=== PATIENT | male | born 1930 | race Caucasian/White ===

== ENCOUNTER 2018-07-12 16:45 | Emergency (ER) | payer MEDICARE, OTHER ==
--- NOTE | 2018-07-12 17:14 | Emergency Department Record ---
History of Present Illness - General Chief Complaint: Fall Injury Stated Complaint: FALL Time Seen by Provider: 07/12/18 17:01 Source: Patient Mode of Arrival: Wheelchair Limitations: No limitations - History of Present Illness Initial Comments: The patient is here due to tripping and falling down 1-2 steps 8 hours ago. He hit his L arm and ribs and has had pain in those areas since. The fall was witnessed by his and she is clear that he did not hit his head or have any LOC. The patient was well for some time but now for the last few hours is having trouble walking due to pain. His main issue seems to be L rib pain. MD Complaint: Fall Onset/Timin -: Hour(s) Fall From: Down stairs (#) When Fall Occurred: Other Fall Witnessed: Yes, by family Place Fall Occurred: Home Loss of Consciousness: None Prolonged Down Time?: No Symptoms Prior to Fall: None Severity: Moderate Severity scale (1-10): 8 Quality: Aching Associated Symptoms: Denies - [place] Coma Scale Eye Response: (4) Open spontaneously Verbal Response: (3) Inappropriate words - Related Data Previous Rx's Medication Instructions Recorded Hydrocodone/Acetaminophen [Stuart 1 each PO QID #12 tablet 07/12/18 5-325 Tablet] Allergies Allergy/AdvReac Type Severity Reaction Status Date / Time alendronate sodium Allergy Unknown PT UNSURE Unverified 07/12/18 17:01 [From FOSAMAX] OF REACTION Antihistamines - Alkylamine Allergy Unknown PT UNSURE Unverified 07/12/18 17:01 [ANTIHISTAMINES - ALKYLAMINE] OF REACTION candesartan cilexetil Allergy Unknown PT UNSURE Unverified 07/12/18 17:01 [From ATACAND] OF REACTION levofloxacin [From LEVAQUIN] Allergy Unknown PT UNSURE Unverified 07/12/18 17:01 OF REACTION metoprolol [METOPROLOL] Allergy Unknown PT UNSURE Unverified 07/12/18 17:01 OF REACTION Qxsrfcr-Ndk-Faw Reductase Allergy Unknown PT UNSURE Unverified 07/12/18 17:01 Inhibitor OF REACTION [OHEPPOH-CTU-YTN REDUCTASE INHIBITOR] warfarin sodium Allergy Unknown PT UNSURE Unverified 07/12/18 17:01 [From COUMADIN] OF REACTION Travel Screening - Travel/Exposure Within Last 30 Days Have you traveled within the last 30 days?: No Review of Systems Constitutional: Denies: Chills, Fever Eyes: Denies: Eye discharge ENT: Denies: Congestion Respiratory: Denies: Cough, Dyspnea Past Medical History - SOCIAL HISTORY Smoking Status: Never smoker Alcohol Use: None Drug Use: None - RESPIRATORY Hx Respiratory Disorders: No - CARDIOVASCULAR Hx Cardio Disorders: Yes Hx Irregular Heartbeat: Yes (afib) - NEURO Hx Neuro Disorders: Yes Comment:: dementia - GI Hx GI Disorders: No - Hx Genitourinary Disorders: No - ENDOCRINE Hx Endocrine Disorders: Yes Hx Thyroid Disease: Yes - MUSCULOSKELETAL Hx Musculoskeletal Disorders: No - PSYCH Hx Psych Problems: No - HEMATOLOGY/ONCOLOGY Hx Hematology/Oncology Disorders: Yes Hx Cancer: Yes (prostate) Family Medical History Any Significant Family History?: No Physical Exam - General General Appearance: Alert, Cooperative, No acute distress - Head Head exam: Atraumatic, Normocephalic - Eye Eye exam: Normal appearance, PERRL - Neck Neck exam: Normal inspection, Full ROM. negative: Tenderness - Respiratory Respiratory exam: Normal lung sounds bilaterally. negative: Respiratory distress - Cardiovascular Cardiovascular Exam: Irregular rhythm - GI/Abdominal GI/Abdominal exam: Soft, Tenderness. negative: Rebound, Rigid - Extremities Extremities exam: Full ROM. negative: Normal inspection (There is a L forearm abrasion. There is no bony tenderness.) - Back Back exam: Reports: Normal inspection - Neurological Neurological exam: Abnormal gait (chronic.), Alert. negative: Altered, Motor sensory deficit, Normal gait, Oriented X3 (The patient has very extensive dementia.) Course Vital Signs 07/12/18 16:57 Temperature 97.8 F Pulse Rate 81 Respiratory 16 Rate Blood Pressure 182/89 Pulse Ox 98 - Reevaluation(s) Reevaluation #1: The patient is resting comfortably with no complaints presently. 07/12/18 18:15 Reevaluation #2: I did offer to admit the patient to the hospital for pain control and a PT/OT eval but the patient's and daughter would like to take him home. They understand that the patient could be quite immobile at home and in pain and also unsteady on his feet. Even with those issues they would like to take him home. I explained to them they should return to the ER for any worsening symptoms. 07/12/18 19:13 Medical Decision Making - Data Complexity MDM Data: Labs Ordered and/or Reviewed, X-Ray Ordered and/or Reviewed - Lab Data Result diagrams: 07/12/18 17:10 07/12/18 17:10 - Radiology Data Radiology results: Report reviewed (Chest CT: Nondisplaced T7 and 9 rib fx's with very minimally displaced T8 rib fx. Abd CT: neg for acute changes.) Disposition Disposition: Discharge Clinical Impression: Rib fractures Qualifiers: Encounter type: initial encounter Rib fracture type: multiple ribs Fracture type: closed Laterality: left Qualified Code(s): S22.42XA - Multiple fractures of ribs, left side, initial encounter for closed fracture Disposition: Home, Self-Care Condition: (2) Stable Instructions: Rib Fracture (ED) Additional Instructions: Please use Tylenol OR Stuart for pain. Please see your family doctor later this week or next week. Return to the ER for any worsening symptoms. Keep the L arm abrasion clean and dressed with antibiotic ointment and a bandaid until healed. Prescriptions: Hydrocodone/Acetaminophen [Stuart 5-325 Tablet] 1 each PO QID #12 tablet Forms: Patient Portal Access Time of Disposition: 19:16 Quality - Quality Measures Quality Measures: N/A - Blood Pressure Screening View Details: Yes Does Patient Have Any of the Following: No Blood Pressure Classification: Pre-Hypertensive BP Reading Systolic Measurement: 182 Diastolic Measurement: 89 Screening for High Blood Pressure: < Pre-Hypertensive BP, F/U Documented > [ G8950] Pre-Hypertensive Follow-up Interventions: Referral to alternative/primary care provider.
[2018-07-12 17:25] LABS: BASO % 0.7 % (0-6); EOS % 1.7 % (0-6); GRAN % 60.4 % (47-80); HEMATOCRIT 48.5 % (42.0-52.0); HEMOGLOBIN 16.3 gm/dl (14.0-18.0); LYMPH % 25.1 % (16-45); MEAN CELL VOLUME 95.1 fl (81-97); MEAN CORPUSCULAR HGB CONC 33.6 g/dl (32-36); MEAN PLATELET VOLUME 9.6 fl (7.4-10.4); MONO % 12.1 % (0-9); PLATELET COUNT 286 K/uL (130-400); RED CELL DISTRIBUTION WIDTH 13.3 % (11.5-14.5); WHITE BLOOD COUNT W/O DIFF 12.1 K/uL (4.2-12.2)
[2018-07-12 17:33] LABS: CREATININE 1.4 mg/dL (0.7-1.2)
[2018-07-12 17:36] LABS: INR 1.1; PARTIAL THROMBOPLASTIN TIME 27.3 SECONDS (24.5-39.1); PROTHROMBIN TIME (PATIENT) 10.7 SECONDS (9.5-12.1)
[2018-07-12] MEDS ORDERED: HYDROCODONE/APAP 5/325MG TABLET PO ONE ×2 (18:59→19:17)
[2018-07-12] MEDS ORDERED: Diph,Pert(Acell),Tet Vac 0.5 ML SYR IM ONE (19:18)
--- NOTE | 2018-07-14 08:07 | CT SCAN REPORT ---
EXAM: CT OF THE CHEST WITHOUT CONTRAST HISTORY: LEFT RIB PAIN, PATIENT FELL DOWN STEPS WHILE WALKING DOWN THE PORCH THIS MORNING WITH LEFT SIDE RIB PAIN. TECHNIQUE: Axial CT scan of the chest was performed without IV contrast. Comparison: No prior chest CT. Comparison is made with the chest x-ray dated 06/24/13. Encounter: Initial. FINDINGS: The patient is postop sternotomy. Calcified granuloma right apical region. Heavy coronary artery calcification is present. No pericardial effusion evident. 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 There is no pneumothorax on either side. There is probably some mild atelectasis in the dependent portion of the lungs. Minor linear fibrosis or discoid atelectasis in the left upper lung anteriorly as well. There is a mildly displaced fracture posteriorly in the left eighth rib with probably undisplaced fractures posteriorly in the left seventh and ninth ribs as well. There is moderate compression of the body of T8, but this appears to have been present on a prior lateral chest x-ray of 06/21/13 as well. Mild thoracic curve to the right. There are probably a few calcified pleural plaques in the right apical region posteriorly which are nonspecific although can be seen with some prior asbestos exposure. There is also some mild alveolar infiltrate in both upper lobes. IMPRESSION: 1. MILDLY DISPLACED FRACTURE POSTERIORLY IN THE LEFT EIGHTH RIB. PROBABLE UNDISPLACED FRACTURES IN THE ADJACENT LEFT SEVENTH AND NINTH RIBS WELL. NO ASSOCIATED PNEUMOTHORAX EVIDENT. 2. POSTOP STERNOTOMY WITH EXTENSIVE CORONARY ARTERY CALCIFICATION. 3. ANOMALOUS RIGHT SUBCLAVIAN ARTERY. 4. SOME MILD GROUND GLASS ALVEOLAR INFILTRATE IN BOTH UPPER LOBES. 5. CALCIFIED GRANULOMA RIGHT APEX. 6. SOME CALCIFIED PLEURAL PLAQUES IN THE RIGHT APEX POSTERIORLY WELL. 7. CHRONIC COMPRESSION FRACTURE OF T8 ALSO SEEN ON 06/21/13. JOB NUMBER: [id number] MTDD
--- NOTE | 2018-07-14 08:41 | CT SCAN REPORT ---
EXAM: EMERGENCY CT SCAN OF THE ABDOMEN AND PELVIS WITHOUT CONTRAST HISTORY: PATIENT FELL WITH LEFT LOWER BACK PAIN. TECHNIQUE: Axial CT scan of the abdomen and pelvis was performed without oral or IV contrast at the referring physician's request. Comparison: No prior CT of the abdomen or pelvis with which to compare. Encounter: Initial. FINDINGS: Postop sternotomy is noted in the chest CT from today. Extensive coronary artery calcification again noted. Mildly displaced fracture posteriorly in the left eighth rib and undisplaced fractures in the left seventh and ninth ribs posteriorly also as noted on the chest CT from today. There is mild compression of the body of L2 along the superior end plate which was probably present on the prior lateral chest x-ray of 06/21/13 as well and is likely chronic. Diffuse osteopenia consistent with osteoporosis. There is multilevel degenerative change in the lumbar spine with multilevel degenerative disk disease and multilevel facet joint arthropathy. There is marked central stenosis at the L3-L4 level with slight anterior subluxation of L3 on L4 which appears to be on a degenerative basis related to the extensive facet joint arthropathy at this level. Less prominent central stenosis at other levels as well. Multilevel foraminal stenosis also present. No intrarenal calculi or hydronephrosis evident. Moderate bladder distention with no bladder calculi evident and no hydroureter or ureteral calculus seen on either side. Evaluation of the bowel and viscera is extremely limited without oral or IV contrast. Given this limitation, no definite hepatic, splenic, adrenal, pancreatic, or renal mass identified. Small hiatal hernia. Prominent diverticulosis left side of the colon, but no diverticulitis evident. The appendix is visualized and appear negative. No free intraperitoneal air or free intraperitoneal fluid identified. IMPRESSION: 1. LEFT SEVENTH THROUGH NINTH RIB FRACTURES REPORTED IN THE CHEST CT. 2. MILD COMPRESSION SUPERIOR END PLATE OF THE BODY OF L2 APPEARS CHRONIC. 3. ADVANCED DEGENERATIVE CHANGES MOST MARKED AT THE L3-L4 INTERSPACE WITH PROMINENT STENOSIS AT THIS LEVEL, LESS SO ELSEWHERE ALSO DESCRIBED ABOVE. 4. PROMINENT DIVERTICULOSIS LEFT SIDE OF THE COLON, BUT NO DIVERTICULITIS. EVIDENT. 5. NO FREE AIR OR FREE FLUID EVIDENT. 6. NO URINARY TRACT CALCULI OR HYDRONEPHROSIS EVIDENT. JOB NUMBER: [id number] [facility]
== END 2018-07-12 19:51 | disposition home or self-care (01) ==
LOC: ER 16:45
DX: S22.42XA Multiple fractures of ribs, left side, initial encounter for closed fracture (principal); W01.10XA Fall on same level from slipping, tripping and stumbling with subsequent striking against unspecified object, initial encounter; Y92.009 Unspecified place in unspecified non-institutional (private) residence as the place of occurrence of the external cause; I48.91 Unspecified atrial fibrillation
CPT/HCPCS: 71250; 74176; 80048; 85025; 85610; 85730; 90715; 94010; 96372; 99283; 99284

== ENCOUNTER 2019-07-11 14:04 | Inpatient (IN) | payer MEDICARE, OTHER ==
[2019-07-11 14:45] LABS: ABSOLUTE NEUTROPHIL COUNT 5.28; BASO % 0.7 % (0-6); GRAN % 57.1 % (47-80); HEMATOCRIT 45.8 % (42.0-52.0); HEMOGLOBIN 15.6 gm/dl (14.0-18.0); LYMPH % 27.7 % (16-45); MEAN CELL VOLUME 96.2 fl (81-97); MEAN CORPUSCULAR HEMOGLOBIN 32.8 pg (27-33); MEAN CORPUSCULAR HGB CONC 34.1 g/dl (32-36); MEAN PLATELET VOLUME 9.8 fl (7.4-10.4); MONO % 12.5 % (0-9); PLATELET COUNT 299 K/uL (130-400); RED BLOOD COUNT 4.76 M/uL (4.40-5.70); RED CELL DISTRIBUTION WIDTH 13.3 % (11.5-14.5); WHITE BLOOD COUNT W/O DIFF 9.2 K/uL (4.2-12.2)
[2019-07-11 15:22] LABS: ALB/GLOB RATIO 1.1 (1.1-1.8); ALBUMIN 4.1 g/dL (4.0-5.0); BILIRUBIN,TOTAL 0.6 mg/dL (0.2-1.0); CREATININE 1.3 mg/dL (0.7-1.2); TOTAL PROTEIN 7.8 g/dL (6.6-8.7)
--- NOTE | 2019-07-11 16:19 | ULTRASOUND REPORT ---
EXAMINATION: Left Lower Extremity Ultrasound, Venous Duplex Doppler EXAM DATE: 07/11/2019 4:10 PM TECHNIQUE: Color Doppler, spectral Doppler, and hines scale evaluation of the left lower extremity fro m the common femoral vein to the popliteal vein. Evaluation of the deep venous system of the lower e xtremity was performed. INDICATION: swelling PROCEDURE: Duplex scan of extremity veins including responses to compression and other maneuvers; un ilateral study FINDINGS: The deep venous system of the left leg appears normal, with normal flow and compressibilit y. No filling defects are seen. IMPRESSION: 1. Negative for DVT. Dictated by: Maco Maciel MD on 07/11/2019 4:16 PM. .
[2019-07-11] MEDS ORDERED: LIDOCAINE UROJECT 10 ML APPL MM ONE (16:34)
[2019-07-11 17:02] LABS: URINE APPEARANCE CLEAR; URINE BILIRUBIN NEGATIVE (NEGATIVE); URINE BLOOD NEGATIVE (NEGATIVE); URINE COLOR YELLOW; URINE GLUCOSE (UA) NEGATIVE (NEGATIVE); URINE KETONE NEGATIVE (NEGATIVE); URINE LEUKOCYTE ESTERASE NEGATIVE (NEGATIVE); URINE NITRITE NEGATIVE (NEGATIVE); URINE PROTEIN NEGATIVE (NEGATIVE); URINE UROBILINOGEN 0.2 E.U./dL (0.20 - 1.00)
--- NOTE | 2019-07-11 17:15 | RADIOLOGY REPORT ---
EXAMINATION: Left Ankle, Complete Minimum Three Views EXAM DATE: 07/11/2019 5:00 PM TECHNIQUE: AP, lateral, and oblique INDICATION: Unexplained swelling. COMPARISON: None ENCOUNTER: Initial FINDINGS: The bones are osteopenic. No clearly acute osseous abnormality. Moderate scattered soft tissue swelli ng. IMPRESSION: Osteopenia. No conclusive acute osseous abnormality. Dictated by: Zohaib Randall MD on 07/11/2019 5:11 PM. .
--- NOTE | 2019-07-11 17:30 | Emergency Department Record ---
History of Present Illness - General Chief complaint: Swelling of legs Stated complaint: LEG SWELLING Time Seen by Provider: 07/11/19 14:27 Source: Family, EMS Mode of Arrival: EMS Limitations: No limitations - History of Present Illness Initial comments: pt was brought in by ems for increased weakness, unable to walk, l ankle swelling. pt has dementia. MD Complaint: Extremity pain Onset/Timin -: Week(s) Location: Left, Lower Leg History of Same: Yes (but worsening) Consistency: Getting worse Improves with: Nothing Worsens with: Exertion, Weight bearing - Related Data Home Medications Medication Instructions Recorded Confirmed Last Taken Cholecalciferol (Vitamin D3) 2,000 unit PO DAILY 07/11/19 07/11/19 07/11/19 [Vitamin D3] Allergies Allergy/AdvReac Type Severity Reaction Status Date / Time alendronate sodium Allergy Unknown PT UNSURE Verified 07/11/19 14:22 [From FOSAMAX] OF REACTION Antihistamines - Alkylamine Allergy Unknown PT UNSURE Verified 07/11/19 14:22 [ANTIHISTAMINES - ALKYLAMINE] OF REACTION candesartan cilexetil Allergy Unknown PT UNSURE Verified 07/11/19 14:22 [From ATACAND] OF REACTION levofloxacin [From LEVAQUIN] Allergy Unknown PT UNSURE Verified 07/11/19 14:22 OF REACTION metoprolol [METOPROLOL] Allergy Unknown PT UNSURE Verified 07/11/19 14:22 OF REACTION Pcwyloq-Yih-Xjj Reductase Allergy Unknown PT UNSURE Verified 07/11/19 14:22 Inhibitor OF REACTION [[id number]-PTS REDUCTASE INHIBITOR] warfarin sodium Allergy Unknown PT UNSURE Verified 07/11/19 14:22 [From COUMADIN] OF REACTION Travel Screening - Travel/Exposure Within Last 30 Days Have you traveled within the last 30 days?: No - Travel/Exposure Within Last Year Have you traveled outside the [place] in the last year?: No - Additonal Travel Details Have you been exposed to anyone with a communicable illness?: No Review of Systems Reviewed: No additional complaints except as noted below Constitutional: Reports: As per HPI. Denies: Chills, Fever, Malaise, Night sweats, Weakness, Weight change Eyes: Reports: As per HPI. Denies: Eye discharge, Eye pain, Photophobia, Vision change ENT: Reports: As per HPI. Denies: Congestion, Dental pain, Ear pain, Epistaxis, Hearing loss, Throat pain Respiratory: Reports: As per HPI. Denies: Cough, Dyspnea, Hemoptysis, Stridor, Wheezes Cardiovascular: Reports: As per HPI. Denies: Arrhythmia, Chest pain, Dyspnea on exertion, Edema, Murmurs, Orthopnea, Palpitations, Paroxysmal nocturnal dyspnea, Rheumatic Fever, Syncope Endocrine: Reports: As per HPI. Denies: Fatigue, Heat or cold intolerance, Polydipsia, Polyuria Gastrointestinal: Reports: As per HPI. Denies: Abdominal pain, Constipation, Diarrhea, Hematemesis, Hematochezia, Melena, Nausea, Vomiting Genitourinary: Reports: As per HPI. Denies: Dysuria, Frequency, Hematuria, Incontinence, Retention, Testicular pain, Testicular mass, Urgency Musculoskeletal: Reports: As per HPI. Denies: Arthralgia, Back pain, Gout, Joint swelling, Myalgia, Neck pain Skin: Reports: As per HPI. Denies: Bruising, Change in color, Change in hair/nails, Lesions, Pruritus, Rash Neurological: Reports: As per HPI. Denies: Abnormal gait, Confusion, Headache, Numbness, Paresthesias, Seizure, Tingling, Tremors, Vertigo, Weakness Psychiatric: Reports: As per HPI. Denies: Anxiety, Auditory hallucinations, Depression, Homicidal thoughts, Suicidal thoughts, Visual hallucinations Hematological/Lymphatic: Reports: As per HPI. Denies: Anemia, Blood Clots, Easy bleeding, Easy bruising, Swollen glands Past Medical History - SOCIAL HISTORY Smoking Status: Never smoker Alcohol Use: None Drug Use: None - RESPIRATORY Hx Respiratory Disorders: No - CARDIOVASCULAR Hx Cardio Disorders: Yes Hx CHF: Yes Hx Heart Attack: Yes (2002) Hx Irregular Heartbeat: Yes (afib) - NEURO Hx Neuro Disorders: Yes Comment:: dementia - GI Hx GI Disorders: No - Hx Genitourinary Disorders: Yes Hx UTI: Yes Comment:: sepsis - ENDOCRINE Hx Endocrine Disorders: Yes Hx Diabetes: No Hx Thyroid Disease: Yes - MUSCULOSKELETAL Hx Musculoskeletal Disorders: No - PSYCH Hx Psych Problems: No - HEMATOLOGY/ONCOLOGY Hx Hematology/Oncology Disorders: Yes Hx Cancer: Yes (prostate) Hx Chemotherapy: No Hx Radiation Therapy: No Family Medical History Any Significant Family History?: No Physical Exam - General General Appearance: Alert, Cooperative, No acute distress - Head Head exam: Normal inspection - Eye Eye exam: Normal appearance, PERRL, EOMI Pupils: Normal accommodation - ENT ENT exam: Normal exam, Mucous membranes moist, Normal external ear exam, Normal orophraynx Ear exam: Normal external inspection. negative: External canal tenderness Nasal Exam: Normal inspection. negative: Discharge, Sinus tenderness Mouth exam: Normal external inspection, Tongue normal Teeth exam: Normal inspection. negative: Dental caries Throat exam: Normal inspection. negative: Tonsillar erythema, Tonsillar exudate - Neck Neck exam: Normal inspection, Full ROM. negative: Tenderness - Respiratory Respiratory exam: Normal lung sounds bilaterally. negative: Respiratory distress - Cardiovascular Cardiovascular Exam: Regular rate, Normal rhythm, Normal heart sounds - GI/Abdominal GI/Abdominal exam: Soft, Normal bowel sounds. negative: Tenderness - Rectal Rectal exam: Deferred - exam: Deferred - Extremities Extremities exam: Normal inspection, Full ROM, Normal capillary refill. negative: Tenderness - Back Back exam: Reports: Normal inspection, Full ROM. Denies: Muscle spasm, Rash noted, Tenderness - Neurological Neurological exam: Alert, CN II-XII intact, Other (pt has generalized weakness, unable to walk). negative: Normal gait, Oriented X3 - Psychiatric Psychiatric exam: Normal affect, Normal mood - Skin Skin exam: Dry, Intact, Normal color, Warm Course Vital Signs 07/11/19 07/11/19 14:06 17:05 Temperature 98.3 F Pulse Rate 91 H Pulse Rate [ 77 Pulse Ox Probe] Respiratory 20 16 Rate Blood Pressure 143/82 Blood Pressure 101/71 [Left Arm] Pulse Ox 97 96 - Reevaluation(s) Reevaluation #1: 07/11/19 17:44 pt contd to be weak unable to hold legs up. Medical Decision Making - Lab Data Result diagrams: 07/11/19 14:15 07/11/19 14:15 Lab Results 07/11/19 07/11/19 07/11/19 Range/Units 14:15 14:15 16:18 WBC 9.2 (4.2-12.2) K/uL RBC 4.76 (4.40-5.70) M/uL Hgb 15.6 (14.0-18.0) gm/dl Hct 45.8 (42.0-52.0) % MCV 96.2 (81-97) fl MCH 32.8 (27-33) pg MCHC 34.1 (32-36) g/dl RDW 13.3 (11.5-14.5) % Plt Count 299 (130-400) K/uL MPV 9.8 (7.4-10.4) fl Gran % 57.1 (47-80) % Lymphocytes % 27.7 (16-45) % Monocytes % 12.5 H (0-9) % Eosinophils % 2.0 (0-6) % Basophils % 0.7 (0-6) % Absolute Neutrophils 5.28 Sodium 144 (136-145) mmol/L Potassium 4.1 (3.4-4.5) mmol/L Chloride 103 (98-107) mmol/L Carbon Dioxide 23.0 (22-29) mmol/L Anion Gap 18.0 H (7-16) BUN 23 (8-23) mg/dL Creatinine 1.3 H (0.7-1.2) mg/dL Estimated GFR 55 mL/min Random Glucose 123 H (74-109) mg/dL Calcium 9.1 (8.8-10.2) mg/dL Total Bilirubin 0.60 (0.2-1.0) mg/dL AST 24 (10.0-50.0) U/L ALT 18 (<41) U/L Alkaline Phosphatase 85 (40-129) U/L Total Protein 7.8 (6.6-8.7) g/dL Albumin 4.1 (4.0-5.0) g/dL Globulin 3.7 (1.4-4.8) gm/dL Albumin/Globulin Ratio 1.1 (1.1-1.8) Urine Color Yellow Urine Appearance Clear Urine pH 6.0 (5.0-8.0) Ur Specific [place] >= 1.030 (1.002-1.030) Urine Protein Negative (NEGATIVE) Urine Glucose (UA) Negative (NEGATIVE) Urine Ketones Negative (NEGATIVE) Urine Blood Negative (NEGATIVE) Urine Nitrite Negative (NEGATIVE) Urine Bilirubin Negative (NEGATIVE) Urine Urobilinogen 0.2 (0.20 - 1.00) E.U./dL Ur Leukocyte Esterase Negative (NEGATIVE) Disposition Disposition: Admit Clinical Impression: Weakness Dementia Qualifiers: Dementia type: unspecified type Dementia behavioral disturbance: with behavioral disturbance Qualified Code(s): 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
[2019-07-11] MEDS ORDERED: ACETAMINOPHEN 500 MG TABLET PO PRN (19:06)
[2019-07-11] MEDS ORDERED: APIXABAN 5MG TABLET PO SCH (22:00)
[2019-07-11] MEDS: MEMANTINE HCL 10 MG TABLET PO SCH (23:57)
[2019-07-11] MEDS: DONEPEZIL HCL 5 MG TABLET PO SCH (23:57)
[2019-07-12] MEDS: LEVOTHYROXINE SODIUM 25 MCG TABLET PO SCH (09:51)
[2019-07-12] MEDS: FUROSEMIDE 40 MG TABLET PO SCH (09:51)
[2019-07-12] MEDS: APIXABAN 2.5MG TABLET PO SCH ×2 (09:51→21:58)
[2019-07-12] MEDS: MEMANTINE HCL 10 MG TABLET PO SCH ×2 (09:51→21:58)
[2019-07-12 09:56] LABS: ABSOLUTE NEUTROPHIL COUNT 4.64; BASO % 0.5 % (0-6); EOS % 2.5 % (0-6); GRAN % 55.6 % (47-80); HEMATOCRIT 45.3 % (42.0-52.0); HEMOGLOBIN 14.8 gm/dl (14.0-18.0); LYMPH % 29.9 % (16-45); MEAN CELL VOLUME 97.8 fl (81-97); MEAN CORPUSCULAR HGB CONC 32.7 g/dl (32-36); MEAN PLATELET VOLUME 9.3 fl (7.4-10.4); MONO % 11.5 % (0-9); PLATELET COUNT 302 K/uL (130-400); RED BLOOD COUNT 4.63 M/uL (4.40-5.70); RED CELL DISTRIBUTION WIDTH 13.2 % (11.5-14.5); WHITE BLOOD COUNT W/O DIFF 8.4 K/uL (4.2-12.2)
[2019-07-12] MEDS ORDERED: METHYLPREDNISOLONE SOD 40MG/VIAL IVP ONE (12:53)
[2019-07-12] MEDS: 0.9 % SODIUM CHLORIDE 1000ML 1,000 ML IV ONE (13:43)
--- NOTE | 2019-07-12 14:05 | CT SCAN REPORT ---
EXAMINATION: CT Head without IV Contrast EXAM DATE: 07/12/2019 1:45 PM TECHNIQUE: Standard protocol CT images of the head were obtained without intravenous contrast. Fernandez l and sagittal reconstructed images were created. INDICATION: CVA, placement COMPARISON: No relevant comparison studies HAND DOMINANCE: Unknown. ENCOUNTER: Not applicable FINDINGS: 1. No intracranial mass effect, shift of midline structures, intra-axial or extra-axial hemorrhage, o r other extra-axial fluid collections. 2. Moderate diffuse brain volume contraction ex vacuo enlargement of the ventricular system, appropri ate for patient's stated age. No ventricular outflow obstruction. 3. Hsieh-white matter differentiation is preserved. No sulcal effacement. No suspicious areas of alter ed attenuation. Mild burden of supratentorial white matter hypodensity. 4. Midline structures and craniocervical junction are unremarkable. 5. Intracranial calcified atherosclerotic disease in the carotid siphons and intradural segments of t he vertebral arteries. 6. No depressed or widely calvarial fractures. No aggressive calvarial lesions. 7. Visualized paranasal sinuses and temporal bone structures are well aerated. Bilateral lens replace ment. IMPRESSION: No CT findings of acute/subacute cortical ischemia. No acute intracranial hemorrhage. Consider furthe r characterization with MRI, as clinically warranted. Senescent and mild chronic microangiopathic changes. A Red Critical Result was communicated to Dr. Taylor at 07/12/2019 2:00 PM. . Dictated by: Kaylin Colin MD on 07/12/2019 1:47 PM. .
--- NOTE | 2019-07-12 14:18 | RADIOLOGY REPORT ---
EXAMINATION: Single View Chest EXAM DATE: 07/12/2019 1:44 PM TECHNIQUE: Single view chest INDICATION: cva,placement COMPARISON: None. ENCOUNTER: Not applicable FINDINGS: The heart size is prominent. Mediastinal contour is within normal limits. Prominent perihilar vascula r markings are noted. There is loss of definition with slight prominence of the pulmonary interstitia l lung markings. No lung consolidation or pleural effusions are present. No pneumothorax is present. Osseous structures appear intact. Overlying soft tissue markings are within normal limits. IMPRESSION: Mild interstitial pulmonary edema is suggested with pulmonary vascular congestion. No segmental conso lidation. Dictated by: Alberto Lindsey DO on 07/12/2019 2:15 PM. .
--- NOTE | 2019-07-12 14:30 | Rehab Evaluation ---
Patient Information - Patient Information Diagnosis: weakness, unable to walk, dementia Ordered Treatment: PT Evaluate and Treat Status: Initial Evaluation History: Detail (Patient arrived in ED on 07/11/19 with increased weakness and inability to walk per .) Past Medical/Surgical Hx: PAST MEDICAL/SURGICAL HISTORY Past Surgical History back heart bypass prostate cataract PMH - Respiratory Hx Respiratory Disorders No PMH - Cardiovascular Hx Cardiovascular Disorders Yes Hx Congestive Heart Failure Yes Hx Heart Attack Yes: 2002 Hx Irregular Heartbeat Yes: afib PMH - Neuro Hx Neurological Disorders Yes Comment: dementia PMH - GI Hx Gastrointestinal Disorders No PMH - Hx Genitourinary Disorders Yes Hx Urinary Tract Infection Yes Comment: sepsis PMH - Endocrine Hx Endocrine Disorders Yes Hx Diabetes No Hx Thyroid Disease Yes PMH - Musculoskeletal Hx Musculoskeletal Disorders No PMH - Psych Hx Psychiatric Problems No PMH - Hematology/Oncology Hx Hematology/Oncology Yes Disorders Hx Cancer Yes: prostate Hx Chemotherapy No Hx Radiation Therapy No Premorbid Status: Detail (Patient's provided the history. Prior to one week ago the patient was ambulating without device with a shuffling gait pattern. The patient's was assisting pt. with all ADL's including feeding. One week ago, patient's noted increased weakness and pt. began walking with a 4 wheeled walker. Pt.'s weakness progressed until pt. was brought to ED on .) Social History: Detail (The patient lives with in a 2 story house with bedroom and bathroom on main floor.) Precautions: [place], Fall - Time With Patient Total Time Spent With Patient (Min): 30 Treatment Procedures: Detail (Initial Evaluation) Subjective Information - Subjective Information Per Patient (The patient was nonverbal except for responding yes to questions and smiling to OT and PT's commands.) Objective Data - Mental Status Patient Orientation: Person (Pt. responded to his name. Pt. followed simple commands inconsistently.) - ROM Not within normal limits (The patient's LE PROM was WFL except for bilateral dorsiflexion to neutral.) - Strength/Tone Not within normal limits (Strength was unable to be assessed with manual resistance due patient's cognition. Pt. was able to complete a SLR on the R LE and wiggle toes. Pt. was able to wiggle toes on L LE. No other active movement was noted in L LE. Increased tone was noted with L hip and knee flexion (resistance to movement)- Level 2 on Gallo Scale. No ankle clonus was noted on the L LE.) - Bed Mobility Needs Assist (Bed Mobility was attempted however pt. required max assist to move both upper and lower body and resisted movement(ie: moved his legs back into the bed)) - Transfers Needs Assist Therapy Assessment - Therapy Assessment Detail (Patient exhibits decreased active movement in L LE and hypertonia in L hip/knee Gallo Scale Level 2 (More marked increase in tone, but limb easily flexed). The patient resisted sitting up on the edge of the bed. Due to cognitive and medical status, pt. is not currently a candidate for inpt. PT however, PT will monitor patient's status and initiate treatment if pt. is able to participate.) Problem List - Problem List Physical Therapy Problem List: Detail (1) Cognitive status 2) Decreased LE strength 3) Increased tone L LE 4) Maximal assistance with all mobility) Goals - Goals Physical Therapy Goals: 1) Patient will follow simple commands consistently to move LE's. 2) PT. will monitor LE PROM for contracture prevention. 3) Pt. will acheive supine to sit ( sitting on edge of bed ) with Maximal assist of 2. Prognosis - Prognosis Poor Plan - Plan Physical Therapy Plan: Monitor pt.'s status daily including AROM and PROM for contracture prevention and bed mobility.
--- NOTE | 2019-07-12 14:43 | Rehab Evaluation ---
Patient Information - Patient Information Diagnosis: weakness, unable to walk, dementia Ordered Treatment: OT Evaluate and Treat Status: Initial Evaluation Surgery: No History: Detail (Patient arrived in ED on 07/11/19 with increased weakness and inability to walk per .) Past Medical/Surgical Hx: PAST MEDICAL/SURGICAL HISTORY Past Surgical History back heart bypass prostate cataract PMH - Respiratory Hx Respiratory Disorders No PMH - Cardiovascular Hx Cardiovascular Disorders Yes Hx Congestive Heart Failure Yes Hx Heart Attack Yes: 2002 Hx Irregular Heartbeat Yes: afib PMH - Neuro Hx Neurological Disorders Yes Comment: dementia PMH - GI Hx Gastrointestinal Disorders No PMH - Hx Genitourinary Disorders Yes Hx Urinary Tract Infection Yes Comment: sepsis PMH - Endocrine Hx Endocrine Disorders Yes Hx Diabetes No Hx Thyroid Disease Yes PMH - Musculoskeletal Hx Musculoskeletal Disorders No PMH - Psych Hx Psychiatric Problems No PMH - Hematology/Oncology Hx Hematology/Oncology Yes Disorders Hx Cancer Yes: prostate Hx Chemotherapy No Hx Radiation Therapy No Premorbid Status: Detail (Patient's provided the history. Prior to one week ago the patient was ambulating without device with a shuffling gait pattern. The patient's was assisting pt. with all ADL's including feeding. One week ago, patient's noted increased weakness and pt. began walking with a 4 wheeled walker. Pt.'s weakness progressed until pt. was brought to ED on 07/11/19.) Social History: Detail (The patient lives with in a 2 story house with bedroom and bathroom on main floor.) Precautions: [place], Fall, Other (impaired cognition) - Time With Patient Total Time Spent With Patient (Min): 25 Treatment Procedures: Detail (OT eval low complexity) Subjective Information - Subjective Information Other (Per spouse) Objective Data - Pain Pain Present: Unable to Respond (Pt is non verbal and did not display behavior to indicate he was in pain.) - Mental Status Patient Orientation: Person (Pt is non verbal and not able to follow any commands. He did smile at occasional comments during evaluation.) - Visual Perception Other (Unable to formally assess, pt able to make eye contact with therapist on right and left side of bed) - ROM Other (Unable to formally assess ROM. PROM limited at shoulder flexion tha to approx 90 degrees, remaining PROM functional.) - Strength/Tone Not within normal limits (Pt able to move right UE against gravity per observation. Pt displays very minimal movement of left UE. Unable to formally assess due to impaired cognition.) - Coordination Other (Not formally assessed.) - Bed Mobility Dependent (Attempted supine to sit, pt unable to follow any commands and when LEs were moved to EOB he would pull them back into bed.) - Sensation Deficit (Unable to formally assess) - ADL's/IADL's Detail (Pt is total assist for all ADLs.) Therapy Assessment - Therapy Assessment Detail (Pt presents with inability to follow any commands, total assist with all mobility and ADLs and dementia which is impairing his functional abilities.) Problem List - Problem List Occupational Therapy Problem List: Detail (1. Decreased functional mobility. 2. Decreased cognition. 3. Decreased UE function) Goals - Goals Occupational Therapy Goals: 1. Pt will tolerate sitting up in chair 1 x daily. 2. Pt will tolerate UE PROM to maintain joint integrity. Prognosis - Prognosis Poor Plan - Plan Occupational Therapy Plan: OT will monitor patient during IP stay. Pt is not a good rehab candidate due to significant cognitive impairments which would limit his participation.
[2019-07-12] MEDS: DONEPEZIL HCL 5 MG TABLET PO SCH (21:58)
[2019-07-13] MEDS: LEVOTHYROXINE SODIUM 25 MCG TABLET PO SCH (06:12)
[2019-07-13] MEDS: 0.9 % SODIUM CHLORIDE 1000ML 1,000 ML IV ONE (08:09)
[2019-07-13 08:25] LABS: ABSOLUTE NEUTROPHIL COUNT 5.49; BASO % 0.1 % (0-6); GRAN % 67.5 % (47-80); HEMATOCRIT 43.8 % (42.0-52.0); HEMOGLOBIN 14.3 gm/dl (14.0-18.0); LYMPH % 20.8 % (16-45); MEAN CELL VOLUME 97.8 fl (81-97); MEAN CORPUSCULAR HEMOGLOBIN 31.9 pg (27-33); MEAN CORPUSCULAR HGB CONC 32.6 g/dl (32-36); MEAN PLATELET VOLUME 9.5 fl (7.4-10.4); MONO % 11.6 % (0-9); PLATELET COUNT 296 K/uL (130-400); RED BLOOD COUNT 4.48 M/uL (4.40-5.70); RED CELL DISTRIBUTION WIDTH 12.8 % (11.5-14.5); WHITE BLOOD COUNT W/O DIFF 8.1 K/uL (4.2-12.2)
[2019-07-13 08:33] LABS: BLOOD UREA NITROGEN 28 mg/dL (8-23); CREATININE 1.2 mg/dL (0.7-1.2); EST GLOMERULAR FILTRATION RATE > 60 mL/min
[2019-07-13 08:35] LABS: GLUCOSE,RANDOM 115 mg/dL (74-109)
[2019-07-13] MEDS: APIXABAN 2.5MG TABLET PO SCH (09:03)
[2019-07-13] MEDS: FUROSEMIDE 40 MG TABLET PO SCH (09:03)
[2019-07-13] MEDS: MEMANTINE HCL 10 MG TABLET PO SCH (09:03)
--- NOTE | 2019-07-13 11:00 | History and Physical Report ---
DATE: 07/12/2019 HISTORY OF PRESENT ILLNESS: Examined the patient at 12:30 p.m. at the bedside with his and daughter. He had left arm paralysis, left partial paralysis, left facial droop, and a Babinski of the left foot. He had difficulty swallowing. Nursing said he is unable to get up and move or eat anything since this morning. The deficit was not appreciated until I examined the patient. and daughter were at the bedside. Explained to them he had a CVA and asked if they wanted neuro intervention because he might be still in the window of opportunity; however, it is hard to say because there was really no starting point observed. This most likely happened during the middle of the night. He was moving all 4 extremities, according to the , yesterday a little bit and he did not have the facial droop yesterday when he came into the emergency department. They said this must have happened during the night. The patient was seen in the emergency department by Dr. Briceño, diagnosed with weakness and left ankle pain and swelling, dementia. PAST MEDICAL HISTORY: Diabetes mellitus, atrial fibrillation, hypertension, hypercholesterolemia, hypothyroidism, severe dementia Alzheimer type, vitamin D deficiency. PAST SURGICAL HISTORY: Back surgery, coronary artery bypass grafting, prostate surgery, cataract surgery. ALLERGIES: ANTIHISTAMINES, FOSAMAX, LEVOFLOXACIN, LISINOPRIL which caused itching, penicillin, SIMVASTATIN which caused hives, TOPROL which caused hives, and WARFARIN. MEDICATIONS: 1. Lasix 40 mg a day. 2. Eliquis 2.5 mg b.i.d. 3. Namenda 10 mg b.i.d. 4. Levothyroxine 25 mcg a day. 5. Aricept 5 mg a day at night. 6. Nitroglycerin sublingual p.r.n. 7. Cod liver oil. 8. Fish oil. 9. [place] 3 fatty acids 1 daily. 10. Multivitamin 1 a day. 11. He uses some homeopathic medications for leg cramps. SOCIAL HISTORY: Never smoked. No drugs or alcohol. FAMILY HISTORY: Unremarkable. REVIEW OF SYSTEMS: HEENT: No upper respiratory infection symptoms, cough, cold, or congestion, according to the family. All the history was obtained by the . Cardiovascular: No chest pain, palpitations, or arrhythmia. Respiratory: No cough, cold, or congestion. Gastrointestinal: No nausea, vomiting, diarrhea, black stools, or bloody stools but he does not want to eat, having some difficulty swallowing. Genitourinary: No dysuria, hematuria, frequency, or burning on urination. Musculoskeletal: He is not moving. He would not get up and move around. That is why the ambulance was called and he was transferred to the emergency department. He had a swollen left ankle. Neurological: He has severe dementia and the has been having to feed him because he has forgotten how to eat. He is incontinent of urine and stool. Endocrine: No diabetes. He does have hypothyroidism and he is on levothyroxine. Integument: No rash, ulcers, change in moles, or yellow skin. PHYSICAL EXAMINATION: VITALS: Height 5 feet 11 inches, weight 185 pounds. Temperature 99.1, pulse 86, respiratory rate 16, blood pressure 152/79, pulse ox 94% on room air. HEENT: Pupils are equal, round, and reactive to light and accommodation. Extraocular muscles are intact. Throat is clear. Nose is clear. Tympanic membranes are hines. NECK: Supple. No jugular venous distention. No hepatojugular reflux. No carotid bruits. Thyroid is smooth. CARDIOVASCULAR: Regular rate and rhythm without murmurs, clicks, rubs, or gallops. EKG showing atrial fib, rate of 74. RESPIRATORY: Breath sounds equal bilaterally. ABDOMEN: Soft, nontender on palpation. The daughter said she thought she felt something hard in his abdomen but he did not seem to flinch or act painful when she was palpating his abdomen. EXTREMITIES: The left ankle is swollen. X-rays were taken in the emergency department. No fracture seen. Also venous Doppler done and no DVTs were seen. JOINTS: He is not moving his left arm or left leg. He has positive Babinski on the left foot. BREASTS: Normal male breasts. RECTAL: Deferred. GENITALIA: Deferred. NEUROLOGIC: Cranial nerves are not intact. He has a left facial droop and it is difficult to assess sensation because of his lack of ability to speak and dementia. Strength, he has left arm paralysis. It is very flaccid. When you lift it off the bed, it drops to the ground. He has spontaneous movement in the right arm and right leg. He has some spontaneous movement of the left leg when I ask him to move his foot but he seems to move the right foot more than the left. Deep tendon reflexes hypo-reflexive on the left side, 2+/5 on the right side. MENTAL STATUS: He is confused, not responsive except for painful palpation. He did open his eyes and seemed to try to respond to my questions. SKIN: No rashes or sores noted. IMPRESSION: 1. 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 2. Dysphagia most likely secondary from his stroke. 3. Hypercholesterolemia. 4. Hypertension. 5. Hypothyroidism. 6. End-stage dementia and Alzheimer disease. 7. Vitamin D deficiency. 8. Chronic atrial fibrillation, on Eliquis. 9. Bilateral hearing loss. 10. Do Not Resuscitate. PLAN: CT scan. EKG. Chest x-ray. Review his labs. Discuss how much intervention the family wants. At this point, it is palliative care. We will see what conservative stroke care does. They are also talking to the [facility] in [place]. SARIAH
[2019-07-13] MEDS ORDERED: FLUCONAZOLE 100 MG TABLET PO ONE (13:11)
--- NOTE | 2019-07-13 13:25 | Discharge Note ---
VTE H&P Assessment - Risk for VTE Risk for VTE: Yes Risk Level: Moderate Risk Assessment Date: 07/12/19 Risk Assessment Time: 12:00 VTE Orders Placed or Will Be Placed: Yes Discharge Medications - Discharge Medications Prescriptions: Nystatin 5 ml PO QID #200 oral.susp Home Medications: Ambulatory Orders Levothyroxine Sodium 25 mcg PO DAILY 07/12/18 [Last Taken 07/11/19] Acetaminophen [Tylenol 500Mg Tab] 1,000 mg PO Q6H PRN tablet 07/13/19 [Last Taken Unknown] Levothyroxine Sodium [Synthroid] 25 mcg PO DAILYTHY tab 07/13/19 [Last Taken Unknown] Nystatin 5 ml PO QID #200 oral.susp 07/13/19 [Last Taken Unknown] Discharge Note - Date Date of Discharge Note: 07/13/19 Disposition: Hospice care; pt to live @home Condition: (5) Critical Additional Instructions: patient is going to [facility] under the care of the [facility] diet as tolerated Referrals: Lincoln Taylor D.O. [Primary Care Provider] -
[2019-07-13] MEDS ORDERED: NYSTATIN 100,000 UNITS/ML 5ML CUP PO SCH (14:00)
--- NOTE | 2019-07-15 10:40 | Discharge Summary ---
DATE: DISCHARGE DIAGNOSES: 1. Cerebrovascular accident, right-sided with left arm and left leg paralysis and left facial droop. 2. Dysphagia secondary to cerebrovascular accident. 3. Thrush, oral. 4. Dementia, terminal. 5. Hypertension. 6. Hypothyroidism. 7. Chronic atrial fibrillation. 8. Going to hospice care. 9. Do Not Resuscitate. 10. Gout of the left ankle. ATTENDING PHYSICIAN: Lincoln Taylor DO REASON FOR HOSPITALIZATION: This 88-year-old female was not able to move according to the . Ambulance called. He was transported to the hospital for evaluation. He was evaluated in the emergency department by Dr. Briceño who diagnosed him with weakness and left ankle pain and swelling and dementia. He was admitted to the hospital for further care. During the night of the first admission of the hospital admission, he developed paralysis of the left arm and left leg with left facial droop. When I evaluated the patient, he had signs of a stroke. Discussed the findings with the daughter and and they did not want to transfer to neurology in [place] for neurosurgical or neuro intervention. Because of his severe dementia, they wanted to let conservative therapy be the treatment choice and go from there. The patient had a CT scan done which showed nothing. However, it was too soon to show the findings of his stroke. Offered to do a repeat CT scan. The family said it was not worth the money to do that and the decision to transfer has been made; they are not going to transfer. No further testing was indicated. The patient is a little more responsive. He is moving the right arm and right leg slightly. He is not swallowing much. He gags a little bit with food but he is taking some soft fluids down, applesauce and yogurt and pudding and a little bit of liquid. SIGNIFICANT FINDINGS: CT scan was negative. No acute changes. WBC 8100, hemoglobin 14.3, sodium 146, potassium 4.4, chloride 110, BUN 28, creatinine 1.2, sugar is holding at 115, UA is negative for a UTI. His uric acid was elevated at 11.5. He was given 1 dose of IV Solu-Medrol to help his gout in his left ankle. EKG with atrial fib, rate controlled, no acute changes. Venous Doppler was negative for a DVT. Ankle x-ray was negative for fractures. Head CT, no CT evidence of acute or subacute cortical ischemia. No acute intracranial hemorrhage. Consider further characterization, MRI is clinically warranted. The chest x-ray, mild interstitial pulmonary edema suggested with pulmonary vascular congestion. No segmental consolidation. THERAPY PROVIDED: The patient was given neuro checks and conservative therapy, turning every 2 hours. He did have a bowel movement while turning every time. IV fluids 50 mL/hour. Physical Therapy and Occupational Therapy evaluated the patient but he was unable to do anything. HOSPITAL COURSE: Basically the same. There is some improvement in his vision. He is a little bit more open with his eyes on the second day. His blood pressure and vitals are holding stable. He has a white mucous tongue, which is most likely a yeast infection or dry mucous membranes. It looks more like a yeast infection, thrush. We will start one Diflucan pill and nystatin 5 mL 4 times a day. Discussed hospice care with the family and they would like to go with hospice care at this time. The patient qualifies for hospice with terminal dementia, CVA, dysphagia, not eating or drinking. They do not want a feeding tube placed. CONDITION ON DISCHARGE: Critical and going into hospice care. Will transport by ambulance to the [facility] for further care. We will discontinue any nonessential medications. We will continue the thyroid and nystatin and Tylenol, and the hospice doctor will take over further care. SARIAH
== END 2019-07-13 14:20 | disposition hospice, home (50) | DRG 65 ==
LOC: ER 14:04 → MEDSURG 18:26
PROVIDERS: ADMIT Emergency Medicine; ATTEND Emergency Medicine
DX: I63.9 Cerebral infarction, unspecified (principal); B37.0 Candidal stomatitis; R13.10 Dysphagia, unspecified; R26.2 Difficulty in walking, not elsewhere classified; F03.90 Unspecified dementia, unspecified severity, without behavioral disturbance, psychotic disturbance, mood disturbance, and anxiety; I50.9 Heart failure, unspecified; I48.91 Unspecified atrial fibrillation; Z79.01 Long term (current) use of anticoagulants; E03.9 Hypothyroidism, unspecified; E11.9 Type 2 diabetes mellitus without complications; I25.2 Old myocardial infarction; Z90.79 Acquired absence of other genital organ(s); Z66 Do not resuscitate; Z86.79 Personal history of other diseases of the circulatory system; Z85.46 Personal history of malignant neoplasm of prostate; E55.9 Vitamin D deficiency, unspecified
CPT/HCPCS: 70450; 71045; 80048; 80053; 81003; 84550; 85025; 93005; 93010; 96374; 99223; 99239; 99285; J2920